=== PATIENT | female | born 1945 | race Caucasian/White ===

== ENCOUNTER 2018-10-31 09:52 | Emergency (ER) | payer OTHER ==
[~2018-10-31] VITALS: Ht 162.6 cm; Wt 57.6 kg
[2018-10-31] MEDS ORDERED: METFORMIN HCL500 MG (10:13)
[2018-10-31] MEDS ORDERED: GLIMEPIRIDE4 MG (10:13)
[2018-10-31] MEDS ORDERED: [UNRECOGNIZED DRUG - OTHER] (10:14)
[2018-10-31] MEDS ORDERED: [UNRECOGNIZED DRUG - OTHER] (10:14)
[2018-10-31] MEDS ORDERED: METOPROLOL TART50 MG (10:15)
[2018-10-31] MEDS ORDERED: PREDNISONE (10:15)
[2018-10-31] MEDS ORDERED: TACROLIMUS1 MG (10:16)
[2018-10-31] MEDS ORDERED: NORVASC10 MG (10:16)
[2018-10-31] MEDS ORDERED: [UNRECOGNIZED DRUG - OTHER] (10:17)
[2018-10-31] MEDS ORDERED: MEDROLPACK PO (15:41)
== END 2018-10-31 16:26 | disposition home or self-care (01) ==
LOC: ER 09:52
DX: B34.9 Viral infection, unspecified (principal)